=== PATIENT | female | born 1980 | race Caucasian/White ===

== ENCOUNTER 2021-01-02 21:15 | Emergency (ER) | payer BC ==
[~2021-01-02] VITALS: Ht 165.1 cm; Wt 86.2 kg
[2021-01-02] MEDS ORDERED: ACETAMINOPHEN-1 EAC2 PO (23:10)
[2021-01-02] MEDS ORDERED: IBUPROFEN 800800 M1 PO (23:10)
[2021-01-02] MEDS ORDERED: DOXYCYCLINE 10100 MG PO (23:10)
[2021-01-02 23:34] VITALS: BP 155/74
== END 2021-01-02 23:35 | disposition home or self-care (01) ==
LOC: M.ERS 21:15
DX: K61.0 Anal abscess (principal); Z88.1 Allergy status to other antibiotic agents

== ENCOUNTER → 2021-03-04 | Outpatient (CLI) | payer BC ==
[~2021-03-04] MED LIST: ACETAMINOPHEN-1 EAC2 PO; DOXYCYCLINE 10100 MG PO; IBUPROFEN 800800 M1 PO
== END ==
LOC: M.ULTRA 14:54
PROVIDERS: ATTEND Family Medicine
DX: Z12.31 Encounter for screening mammogram for malignant neoplasm of breast (principal); N94.10 Unspecified dyspareunia; N63.10 Unspecified lump in the right breast, unspecified quadrant

== ENCOUNTER → 2021-03-09 | Outpatient (CLI) | payer BC | LOC: M.RAD 03-05 12:44 | PROVIDERS: ATTEND Family Medicine | DX: N60.02 Solitary cyst of left breast (principal); N60.01 Solitary cyst of right breast; N63.21 Unspecified lump in the left breast, upper outer quadrant ==